=== PATIENT | female | born 2000 | race Caucasian/White ===

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

== ENCOUNTER 2019-02-24 13:20 | Emergency (ER) | payer BC ==
[~2019-02-24] VITALS: Ht 180.3 cm; Wt 72.7 kg
[2019-02-24] MEDS ORDERED: DOXYCYCLINE 10100 MG PO (13:27)
[2019-02-24] MEDS ORDERED: ALDACTONE50 MG PO (13:28)
[2019-02-24 13:29] VITALS: TEMP 98.2
[2019-02-24] MEDS ORDERED: DAYSEE PO (13:29)
[2019-02-24] MEDS ORDERED: ZOFRAN ODT4 MG PO ×3 (14:11→14:21)
[2019-02-24 14:40] VITALS: BP 127/74; PULSE 89
== END 2019-02-24 14:40 | disposition home or self-care (01) ==
LOC: COL.ER 13:20
DX: S06.0X0A Concussion without loss of consciousness, initial encounter (principal); R40.2412 Glasgow coma scale score 13-15, at arrival to emergency department; W22.8XXA Striking against or struck by other objects, initial encounter; Y92.59 Other trade areas as the place of occurrence of the external cause